=== PATIENT | male | born 1990 | race Caucasian/White ===

== ENCOUNTER 2016-07-05 22:01 | Emergency (ER) | payer BC, OTHER ==
[2016-07-05 23:20] LABS: RED BLOOD COUNT 4.63 M/UL (4.20-5.50); WHITE BLOOD COUNT 14.8 K/UL (4.5-11.0)
[2016-07-05 23:41] LABS: BUN/CREATININE RATIO 22 (0-10)
== END 2016-07-05 23:20 | disposition short-term general hospital (02) ==
LOC: ER1 22:01
PROVIDERS: Emergency Medicine
DX: S31.123A Laceration of abdominal wall with foreign body, right lower quadrant without penetration into peritoneal cavity, initial encounter (principal); S00.93XA Contusion of unspecified part of head, initial encounter; S40.811A Abrasion of right upper arm, initial encounter; M54.2 Cervicalgia; M54.6 Pain in thoracic spine; V29.9XXA Motorcycle rider (driver) (passenger) injured in unspecified traffic accident, initial encounter; Y93.89 Activity, other specified; Y92.410 Unspecified street and highway as the place of occurrence of the external cause
CPT/HCPCS: 36415; 71010; 72170; 80053; 83690; 85025; 85610; 85730; 90471; 90714; 96374; 99284; J0690; J7050

== ENCOUNTER 2016-07-18 18:52 | Emergency (ER) | payer BC, OTHER | END 2016-07-18 19:45 | disposition home or self-care (01) | LOC: ER1 18:52 | DX: S31.113D Laceration without foreign body of abdominal wall, right lower quadrant without penetration into peritoneal cavity, subsequent encounter (principal); J06.9 Acute upper respiratory infection, unspecified | CPT/HCPCS: 99281 ==